=== PATIENT | female | born 1960 | race Caucasian/White ===

== ENCOUNTER 2017-02-28 08:00 | Inpatient (IN) | payer OTHER ==
[~2017-02-28] VITALS: Ht 167.6 cm; Wt 97.4 kg
--- NOTE | ~2017-02-28 | OR ---
PATIENT'S NAME: JOSELYN CHAVEZ [facility] AGE: 56 Y [address] ROOM: [place] [address] LOCATION: [facility] ADMIT DATE: 03/13/2017 OR/Procedure Report DISCHARGE DATE: FAMILY PHYSICIAN: Davis Thapa MD ATTENDING PHYSICIAN: BIRGIT ZAMARRIPA SURGEON: Birgit Zamarripa MD ARBORIST: Adair Irwin PA-C and Dontrell Lindsey CST/BASKET FILLER. DATE OF PROCEDURE: 03/13/2017 PRE-OP DIAGNOSIS: Degenerative joint disease left knee. POST-OP DIAGNOSIS: Degenerative joint disease left knee. OPERATION: Left total knee arthroplasty with computer navigation. ANESTHESIA: Spinal anesthesia plus adductor canal block plus periarticular local anesthesia (ropivacaine with epinephrine and Toradol). ESTIMATED BLOOD LOSS: Less than 10 mL. DRAIN: None. SPECIMEN: None. COMPLICATIONS: None. IMPLANT SYSTEM: [place] [employer] Size 4 left posterior stabilized femoral component Size 3 [place] Modular tibial base plate An 11 mm posterior stabilized size 3 X3 tibial polyethylene insert A 29-mm oval X3 patellar component INDICATIONS FOR SURGERY: Ms. Joselyn Chavez is a 56-year-old female, who presents with advanced left knee degenerative joint disease and associated severely compromised activities of daily living. The patient has decided to proceed with knee replacement after having been thoroughly counseled regarding the associated risks, benefits, and limitations. We have specifically reviewed the risks and implications of infection, deep venous thrombosis, pulmonary embolism, mortality, neurovascular complications, blood transfusion (and associated potential for disease transmission or transfusion reaction), stiffness, instability, mechanical deterioration of the components (due to wear and or loosening), and the potential need for revision. We have also emphasized the importance of active involvement and compliance with post- operative physical therapy as a means of optimizing range of motion and PATIENT'S NAME: JOSELYN CHAVEZ [facility] AGE: 56 Y [address] ROOM: [place] [address] LOCATION: [facility] ADMIT DATE: 03/13/2017 OR/Procedure Report DISCHARGE DATE: FAMILY PHYSICIAN: Davis Thapa MD ATTENDING PHYSICIAN: BIRGIT ZAMARRIPA functional recovery. Informed consent has been granted. DESCRIPTION OF PROCEDURE: The patient was positioned supine after administration of anesthesia and prophylactic antibiotics. A well-padded pneumatic tourniquet was placed around the left proximal thigh, and the left lower extremity was prepped and draped with vigilant sterile technique. The patient's name as well as the intended operative side and procedure were confirmed with a verbal time-out involving myself, the circulating nurse, the scrub nurse, and the anesthesiologist. Examination under anesthesia demonstrated a moderate effusion. There were no active skin lesions. There was no erythema. There was no abnormal warmth. Range of motion under anesthesia was from full extension to 130 degrees of flexion. There was no ligamentous insufficiency. The left lower extremity was elevated and exsanguinated with an Esmarch wrap, and the pneumatic tourniquet was inflated to 300mmHg. The knee was approached through a longitudinal midline incision. A medial parapatellar arthrotomy was performed and the patella was everted. Examination of the joint space demonstrated a moderate amount of benign-appearing translucent synovial fluid. There was mild generalized, non-proliferative synovitis. There was a 2-cm ganglion cyst at the posterior aspect of the intercondylar notch. Cruciate ligaments were intact. There was full-thickness loss of articular cartilage involving 50% of the medial femoral condyle and the anteromedial 50% of the medial tibial plateau. There was extensive high-grade partial-thickness articular cartilage loss throughout the remainder of the medial femoral condyle. There was high-grade partial thickness articular cartilage loss at the apex of the patella and the medial facet of the patella, and a 1 cm diameter region at the central aspect of the femoral trochlea. There were small osteophytes at the superior and lateral margins of the femoral trochlea as well as the lateral femoral condyle. There was a 1-cm diameter unstable delaminating full-thickness flap of articular cartilage at the central aspect of the lateral femoral condyle. There were mild grade 3 degenerative changes and partial-thickness fissuring of the articular cartilage at the medial aspect of the lateral tibial plateau. The lateral meniscus was intact. There were extensive degenerative tearing of the posterior half of the medial meniscus including a large horizontal cleavage tear. Remnants of the menisci and cruciate ligaments were excised. The STWA navigation femoral tracker was pinned in place at the distal aspect of the femoral trochlea. Absence of motion between the femur and the tracking device was confirmed manually and visually. Femoral osseous landmarks were obtained in order to calibrate the computer navigation system. Landmarks included the center of rotation of the ipsilateral hip, the center-point of PATIENT'S NAME: JOSELYN CHAVEZ [facility] AGE: 56 Y [address] ROOM: [id number] [place], [place] [address] LOCATION: [facility] ADMIT DATE: 03/13/2017 OR/Procedure Report DISCHARGE DATE: FAMILY PHYSICIAN: Davis Thapa MD ATTENDING PHYSICIAN: BIRGIT ZAMARRIPA the distal femur, the femoral AP axis, 57 points on the medial femoral condyle articular surface, and 57 points on the lateral femoral condyle articular surface. The [employer] computer navigation system was subsequently utilized to position the distal femoral resection block such that the distal femoral resection was performed perfectly perpendicular to the femoral mechanical axis. The distal femoral resection was performed with a [employer] oscillating saw. The [employer] computer navigation tibial tracker was pinned in place at the anterior aspect of the tibial plateau. Absence of motion between the tibia and the tracking device was confirmed manually and visually. Tibial osseous landmarks were obtained in order to calibrate the computer navigation system. Landmarks included the center-point of the tibial plateau, the AP tibial axis, 57 points on the medial tibial plateau articular surface, 57 points on the lateral tibial plateau articular surface, the medial malleolus, and the lateral malleolus. The [employer] computer navigation system was subsequently utilized to position the proximal tibial resection block such that the proximal tibial resection was performed perfectly perpendicular to the tibial mechanical axis. The proximal tibial resection was performed with a [employer] Precision oscillating saw. Perpendicularity of the tibial resection with respect to the tibial shaft axis was reconfirmed by inserting a spacer- block attached to an extramedullary guide crystal. External rotation of the anterior and posterior femoral resections was set parallel to the epicondylar axis and carefully adjusted in order to create a rectangular flexion gap. The box resection was performed with a reciprocating saw. Anterior and posterior chamfer resections were performed with the oscillating saw. Posterior condyle osteophytes were excised with an osteotome. All other osteophytes were excised with a rongeur. Resection of all remnants of the menisci was reconfirmed. Flexion and extension gaps were confirmed to be symmetric and well balanced with a spacer-block technique. The patella resection was performed with an oscillating saw such that the composite thickness of the reconstructed patella was equivalent to the thickness of the [place] patella. Patella tracking was confirmed to be optimal, and there was no need for a lateral retinacular release. All trial components were removed and all prepared osseous surfaces were thoroughly irrigated with pulsatile saline lavage and dried prior to cementing all three components in a single stage using [employer] Simplex cement containing pre-mixed tobramycin. All extruded excess cement was removed. The entire joint space was thoroughly inspected and thoroughly irrigated with bacteriostatic pulsatile saline lavage to assure that there was no residual debris of any sort. PATIENT'S NAME: JOSELYN CHAVEZ [facility] AGE: 56 Y [address] ROOM: [address] [address] LOCATION: [facility] ADMIT DATE: 03/13/2017 OR/Procedure Report DISCHARGE DATE: FAMILY PHYSICIAN: Davis Thapa MD ATTENDING PHYSICIAN: BIRGIT ZAMARRIPA Final range of motion was from full extension (with no passive hyperextension) degrees of extension to 130 degrees of flexion. Patella tracking was reconfirmed to be optimal. There was excellent anteroposterior stability at 90 degrees of flexion. There was less than 1 mm of medial lift-off to valgus stress in full extension. There was less than 1 mm of lateral lift-off to varus stress in full extension. The arthrotomy was closed with multiple simple and [id number] interrupted #1 Vicryl. Subcutaneous tissues were thoroughly re-irrigated with bacteriostatic pulsatile saline lavage. Subcutaneous tissues were re- approximated with simple buried interrupted #0 Vicryl sutures. The skin was closed with simple buried interrupted 2-0 Vicryl sutures followed by surgical cathi. The dressing consisted of Xeroform gauze, 4x4 gauze, ABD pads and two 6-inch Herminio Wraps. There were no intra-operative complications. It should be noted that the physician's assistant professor of forestry played an active, integral role throughout this entire operation. By providing expert retraction, they greatly facilitated and expedited safe and effective exposure of the distal femur, proximal tibia and patella for preparation and implantation of the components. They were also actively involved in the patient's positioning, prepping and draping, as well as wound closure. MD FLAQUITO CUEVAS/fatuma /[id number] d: 03/13/172121 t: 03/22/17 1744, OPERATIVE SUMMARY
--- NOTE | ~2017-02-28 | DS ---
PATIENT'S NAME: BIBI WEBSTER [facility] AGE: 56 Y [address] ROOM: [address] [address] LOCATION: [facility] ADMIT DATE: 03/13/2017 Discharge Summary DISCHARGE DATE: 03/15/2017 FAMILY PHYSICIAN: Davis Thapa MD ATTENDING PHYSICIAN: Birgit Zamarripa PRIMARY DIAGNOSIS: Degenerative joint disease of the left knee. SECONDARY DIAGNOSIS: No significant secondary diagnosis. PROCEDURE PERFORMED: Left total knee arthroplasty with computer navigation. HISTORY: The patient is a 56-year-old female who presents with advanced left knee degenerative joint disease and associated severely compromised activities of daily living. The patient has decided to proceed with total knee arthroplasty after having been thoroughly counseled regarding the risks, benefits, limitations and alternatives. Please refer to the outpatient clinic notes and admission history and physical for this patient. HOSPITAL COURSE: The patient underwent a left total knee arthroplasty on 03/13/2017 without complications. Spinal anesthesia plus adductor canal block plus periarticular local anesthesia was utilized. The patient received 24 hours of perioperative prophylactic antibiotics and remained hemodynamically stable, neurovascularly intact throughout the entire hospital course. The postoperative prophylactic deep venous thrombosis prophylaxis consisted of Xarelto 10 mg, early mobilization and pneumatic compression devices. Daily physical therapy for gait training, transfer training range of motion and quadriceps isometric exercises were received. The patient progressed well in physical therapy. On the date of discharge, 03/15/2017, the incision at the knee was healing well and showed no signs of infection. DISPOSITION: Home. DISCHARGE ACTIVITY: The patient is to bear weight as tolerated with range of motion and quadriceps isometric exercises as instructed. The operative extremity is to be elevated at least 90% of the day. There is to be sterile 4x4 gauze dressings to the incision daily. Dr. Zamarripa is to be notified immediately if there is any increased pain, fevers, chills, erythema, or drainage. DISCHARGE MEDICATIONS: Include: 1. Xarelto 10 mg take 1 tablet p.o. daily for DVT prevention. 2. Celebrex 200 take 1 tablet p.o. b.i.d. as needed for pain. FOLLOW UP: Follow up date is scheduled for 03/20/2017 for initial PATIENT'S NAME: BIBI WEBSTER [facility] AGE: 56 Y [address] ROOM: [address] [place] [address] LOCATION: G3 ADMIT DATE: 03/13/2017 Discharge Summary DISCHARGE DATE: 03/15/2017 FAMILY PHYSICIAN: Davis Thapa MD ATTENDING PHYSICIAN: Birgit Zamarripa postoperative evaluation and x-rays at that time. ELSA DAMIAN FOR BIRGIT ZAMARRIPA MD TLB/modl /[id number] d: 03/28/17 0151 t: 04/03/17 0951, DISCHARGE SUMMARY
[2017-02-28] MEDS ORDERED: MOBIC15 MG PO (08:36)
[2017-02-28] MEDS ORDERED: BENADRYL25 MG PO (08:37)
--- NOTE | 2017-03-13 15:02 | NUR ---
Introduced self/role to patient, her Yobany and their son. She has a walker already, didn't thin there would be any additional DME needed. Denied any barriers to going home or at home. Will have lots of thru family and friends. Added my name to her marker board, will continue to follow.
--- NOTE | 2017-03-13 15:51 | NUR ---
Significant Event: Pt doing well VSS, 2nd hourly at 1800. Pt taking OK oral, IVF still going. Inc Void, pt has full sensation as of 154. PO Dilaudid given last at 1600, Scheduled tylenol at 1700, next ANTB at 1800, Ice to Knee, Follow up: Pain control
--- NOTE | 2017-03-14 04:05 | NUR ---
Significant Event:pt alert and oriented x4. pleasant with staff and cares. rested in recliner during evening, walks to bathroom with 1 assist gb walker, complains of minimal pain, dilaudid given 2x last at 0139. scheduled tylenol as well. iv to left hand saline locked at 2100. eating and drinking wtih no complicaitons noted. csm wnl. dressing c/d/. foot pumps on as ordered. ice to knee. pt uses call light approp. Follow up:
--- NOTE | 2017-03-14 16:21 | NUR ---
Significant Event: Ambulates with SBA and walker. Dressing C/D/I. Ice at all times. CSM WNL. Voids without difficulty. Emesis X2 during therapy class, Zofran and peppermint oil given, states nausea better. Pain medication changed to Oxycodone IR, none given at this time. Follow up:
--- NOTE | 2017-03-15 05:00 | NUR ---
Significant Event: Vital signs stable. CSM WNL. Herminio wrap dresing is CDI. Up with SBA, gait belt and walker. Roxicodone for pain last at 0455, rating pain 2/10. Scheduled tylenol. No nausea this shift. Follow up: Plans to discharge home today.
[2017-03-15 09:16] LABS: BASOPHIL % 0.3 %; EOSINOPHIL # 0.1 K/uL (0.0-0.5); EOSINOPHIL % 0.9 %; HEMATOCRIT 33.7 % (33.0-46.0); HEMOGLOBIN 11.2 g/dL (10.0-15.0); IMMATURE GRANULOCYTE % 0.3 %; LYMPHOCYTE # 3.1 K/uL (0.8-4.0); LYMPHOCYTE % 24.5 %; MCH 30.9 pg (27.0-34.0); MCHC 33.2 gm/dL (32.0-36.5); MCV 92.8 fl (83.0-98.0); MONOCYTE % 7.5 %; MPV 10.2 fl (9.4-12.4); NEUTROPHIL # (ANC) 8.5 K/uL (1.8-7.8); NEUTROPHIL % 66.5 %; NRBC % 0 /100WBC (0-0.00); PLATELET COUNT 226 K/uL (150-450); RBC 3.63 M/uL (3.50-5.50); RDW-CV 13.1 % (11.9-14.6); WBC 12.7 K/uL (4.0-11.0)
[2017-03-15] MEDS ORDERED: NEURONTIN300 MG PO (13:18)
[2017-03-15] MEDS ORDERED: COLACE100 MG PO (13:18)
[2017-03-15] MEDS ORDERED: TYLENOL EXTRA500 MG PO (13:18)
[2017-03-15] MEDS ORDERED: MIRALAX17 GM PO (13:19)
[2017-03-15] MEDS ORDERED: XARELTO10 MG PO (13:20)
[2017-03-15] MEDS ORDERED: NUCYNTA50 MG PO (13:21)
[2017-03-15] MEDS ORDERED: CELEBREX200 MG PO (13:22)
--- NOTE | 2017-03-15 15:43 | NUR ---
Dismissal Note: Ambulates with SBA and walker. Dressing changed this am, cathi intact. Ice at all times. Voids without difficulty. Hypotensive this am, 500mL IV fluid bolus given. CSM WNL. Pain medication changed to Nucynta, last given at 1255. Sveta education on new medications, patient and state understanding. IV d/cd. Dismissed to home with per private vehicle.
== END 2017-03-15 15:44 | disposition disaster alternative care site (69) | DRG 470 ==
LOC: G3N 03-13 07:08
PROVIDERS: Family Medicine; ADMIT Orthopaedic Surgery
PROC: 0SRD0J9 Replacement of Left Knee Joint with Synthetic Substitute, Cemented, Open Approach (ICD-10-PCS; principal; 2017-03-13)
DX: M17.12 Unilateral primary osteoarthritis, left knee (principal)
CPT/HCPCS: C1713; C1776; J0690; J1100; J1885; J2001; J2250; J2405; J2795; J7030; J7120

== ENCOUNTER → 2017-03-02 | Outpatient (CLI) | payer OTHER ==
[~2017-03-02] MED LIST: BENADRYL25 MG PO; CELEBREX200 MG PO; COLACE100 MG PO; MIRALAX17 GM PO; MOBIC15 MG PO; NEURONTIN300 MG PO; NUCYNTA50 MG PO; TYLENOL EXTRA500 MG PO; XARELTO10 MG PO
== END | disposition disaster alternative care site (69) ==
LOC: GNJRC 10:02
DX: Z01.812 Encounter for preprocedural laboratory examination (principal); M17.12 Unilateral primary osteoarthritis, left knee

== ENCOUNTER → 2017-03-20 | Outpatient (CLI) | payer OTHER ==
--- NOTE | ~2017-03-20 | ENPV ---
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 Procedure Type of Study: Veins:Lower Extremities DVT Study, Lower Extremity Left. Indications for Study:Pain in Limb and Swelling of Limb. Appropriate Use Criteria:9 Patient Status:Routine. Study Location:Vascular Lab. Technical Quality:Adequate visualization. - Preliminary reported to:Dr Pino's RN. Velocities are measured in cm/s ; Diameters are measured in cm Right Lower Extremities DVT Study Measurements Right 2D and Doppler Measurements + + + + +------+------+ + !Location !Visualized!Compressibility!Thrombosis!Signal!Reflux!Reflux ! ! ! ! ! ! ! !(sec) ! + + + + +------+------+ + !Common !Yes !Yes !None !Phasic! ! ! !Femoral ! ! ! ! ! ! ! + + + + +------+------+ + Left Lower Extremities DVT Study Measurements Left 2D and Doppler Measurements + + + + +------+------+ + !Location !Visualized!Compressibility!Thrombosis!Signal!Reflux!Reflux ! ! ! ! ! ! ! !(sec) ! + + + + +------+------+ + !GSV Thigh !Yes !Yes !None !Phasic! ! ! + + + + +------+------+ + !Common !Yes !Yes !None !Phasic! ! ! !Femoral ! ! ! ! ! ! ! + + + + +------+------+ + !Prox !Yes !Yes !None !Phasic! ! ! !Femoral ! ! ! ! ! ! ! + + + + +------+------+ + !Mid Femoral!Yes !Yes !None !Phasic! ! ! + + + + +------+------+ + !Dist !Yes !Yes !None !Phasic! ! ! !Femoral ! ! ! ! ! ! ! + + + + +------+------+ + !Popliteal !Yes !Yes !None !Phasic! ! ! + + + + +------+------+ + !Gastroc !Yes !Yes !None ! ! ! ! + + + + +------+------+ + !PTV !Yes !Yes !None ! ! ! ! + + + + +------+------+ + !Peroneal !Yes !Yes !None ! ! ! ! + + + + +------+------+ + Signature dtt: CHRIS ZAVALA dtd: 03/20/17 1115 Physician Self Edit
== END | disposition disaster alternative care site (69) ==
LOC: GCAR 11:03
DX: Z03.89 Encounter for observation for other suspected diseases and conditions ruled out (principal); Z86.73 Personal history of transient ischemic attack (TIA), and cerebral infarction without residual deficits